=== PATIENT | male | born 1985 ===

== ENCOUNTER 2017-07-18 22:34 | Emergency (ER) | payer SELFPAY ==
[2017-07-18 22:37] VITALS: RESP 16; TEMP 98.2; O2SAT 98
--- NOTE | 2017-07-18 23:25 | ED PDOC ---
HPI: Psych/Substance Abuse Time Seen by Provider: 07/18/17 22:38 Chief Complaint (Nursing): Alcohol Ingestion Chief Complaint (Provider): Alcohol Ingestion History Per: Patient History/Exam Limitations: intoxication Current Symptoms Are (Timing): Gone Now Ingestion Of Substance: Alcohol Modifying Factor(s): Alcohol Additional Complaint(s): Román Matthews is a 31 year old male with no past medical history who presents for evaluation of suicidal thoughts. The patient sent a text message to his stating "if I , send carvalho to my ." He states that he was joking and only said this due to marital problems he currently having and alcohol use. He endorses drinking alcohol today but denies any drug use. Currently denies suicidal or homicidal ideation. Past Medical History Reviewed: Historical Data, Nursing Documentation, Vital Signs Vital Signs: Last Vital Signs Temp 98.2 F 07/18/17 22:35 Pulse 88 07/18/17 22:35 Resp 16 07/18/17 22:35 BP 158/96 H 07/18/17 22:35 Pulse Ox 98 07/18/17 22:35 - Medical History PMH: No Chronic Diseases - Family History Family History: States: No Known Family Hx - Allergies Allergies/Adverse Reactions: Allergies Allergy/AdvReac Type Severity Reaction Status Date / Time No Known Allergies Allergy Verified 07/18/17 22:35 Review of Systems Psych: Negative for: Suicidal ideation, Other (Homicidal Ideation) Physical Exam - Physical Exam Appears: Positive for: Non-toxic, No Acute Distress ( Appears intoxicated) Head Exam: Positive for: ATRAUMATIC, NORMOCEPHALIC Skin: Positive for: Normal Color, Warm, Dry Eye Exam: Positive for: EOMI, PERRL, Conjunctival injection Neck: Positive for: Normal, Painless ROM, Supple Cardiovascular/Chest: Positive for: Regular Rate, Rhythm. Negative for: Murmur Respiratory: Positive for: Normal Breath Sounds. Negative for: Respiratory Distress Gastrointestinal/Abdominal: Positive for: Normal Exam, Soft. Negative for: Tenderness Back: Positive for: Normal Inspection. Negative for: L CVA Tenderness, R CVA Tenderness, Other (Midline Tenderness) Extremity: Positive for: Normal ROM. Negative for: Pedal Edema, Deformity Neurologic/Psych: Positive for: Alert, Oriented. Negative for: Motor/Sensory Deficits - ECG O2 Sat by Pulse Oximetry: 98 Medical Decision Making Medical Decision Making: Impression: Alcohol intoxication, parasuicidal gesture Plan: Alcohol Serum Urine Drug Screen Crisis Evaluation 1:1 Observation Reevaluation 2am: pt. is awake and alert, seen and cleared by crisis for discharge under dr. wills w/ dx: of alcohol use disorder. return precautions given. Scribe Attestation: Documented by Sergio Lauren, acting as a scribe for Ramiro Tang MD. Provider Scribe Attestation: All medical record entries made by the Scribe were at my direction and personally dictated by me. I have reviewed the chart and agree that the record accurately reflects my personal performance of the history, physical exam, medical decision making, and the department course for this patient. I have also personally directed, reviewed, and agree with the discharge instructions and disposition. Disposition - Clinical Impression Clinical Impression: Alcohol abuse - Patient ED Disposition Is Patient to be Admitted: No - Disposition Referrals: [facility] [Outside] Disposition: Routine/Home Disposition Time: 02:04 Condition: STABLE Instructions: Suicide Prevention for Adults (DC) Forms: [employer] Connect (Bur[place]ian) Print Language: MART[place]QU[place]
[2017-07-19 02:13] VITALS: BP 135/83; PULSE 92
== END 2017-07-19 02:18 | disposition home or self-care (01) ==
LOC: H.ER 22:34
DX: F10.129 Alcohol abuse with intoxication, unspecified (principal); R45.851 Suicidal ideations
CPT/HCPCS: 99282; G0480